=== PATIENT | female | born 1945 | race Caucasian/White ===

== ENCOUNTER 2017-04-23 10:07 | Emergency (ER) | payer BC, MEDICARE ==
[~2017-04-23] VITALS: Ht 167.6 cm; Wt 51.3 kg
[~2017-04-23 10:07] MED LIST: ANTI DEPRESSANT; BACTRIM DS TAB1 EACH PO; CELEXA10 MG PO; FLOMAX0.4 MG PO; HYDROCODONE-AP1 EAC6 PO; NAPROSYN250 MG PO; NORCO 5-325 TA1 EACH PO; PROVIGIL 100 M100 M1 PO
[2017-04-23 10:54] LABS: HEMATOCRIT 39.2 % (37.0-47.0); HEMOGLOBIN 13.1 gm/dL (12.0-15.0); MCH 29.9 pg (26.0-34.0); MCHC 33.3 g/dL (28.0-37.0); MCV 89.9 fL (80.0-100.0); MPV 7.7 fl. (7.2-11.1); RBC 4.36 mil/uL (4.20-5.00); WBC 6.3 thou/uL (4.0-11.0)
[2017-04-23 10:58] LABS: URINE BLOOD NEGATIVE (Negative); URINE CLARITY CLEAR; URINE COLOR DARK YELLOW; URINE GLUCOSE-RANDOM NEGATIVE (Negative); URINE KETONES 1+ (Negative); URINE LEUKOCYTES-REFLEX NEGATIVE (Negative); URINE NITRITE-REFLEX NEGATIVE (Negative); URINE PROTEIN TRACE (Negative); URINE SPECIFIC GRAVITY 1.025 (1.005-1.030)
[2017-04-23 11:00] LABS: ICTOTEST (BILI CONFIRMATORY) Negative (Negative); URINE BILIRUBIN 2+ (Negative)
[2017-04-23 11:09] LABS: CALCIUM 7.7 mg/dL (8.5-10.1); CREATININE 1.6 mg/dL (0.6-1.3); POTASSIUM 4.6 mmol/L (3.5-5.1)
[2017-04-23 11:14] LABS: ALBUMIN 2.1 g/dL (3.4-5.0); TOTAL BILIRUBIN 0.6 mg/dL (<0.1-1.0); TOTAL PROTEIN 5.2 g/dL (6.4-8.2)
[2017-04-23 11:52] VITALS: BP 146/62
== END 2017-04-23 11:53 | disposition home or self-care (01) ==
LOC: M.ERS 10:07
PROVIDERS: Emergency Medicine Emergency Medical Services
DX: R79.89 Other specified abnormal findings of blood chemistry (principal); G35 Multiple sclerosis; F17.200 Nicotine dependence, unspecified, uncomplicated; Z85.3 Personal history of malignant neoplasm of breast; Z90.5 Acquired absence of kidney

== ENCOUNTER 2017-04-29 17:17 | Emergency (ER) | payer BC, MEDICARE ==
[~2017-04-29] VITALS: Ht 167.6 cm; Wt 53.5 kg
[2017-04-29 18:28] LABS: ABSOLUTE MONOCYTES 0.3 thou/uL (0.0-1.2); ABSOLUTE NEUTROPHILS 3.5 thou/uL (1.6-8.1); BASOPHILS 0.3 %; EOSINOPHILS 0.5 %; HEMATOCRIT 37.1 % (37.0-47.0); HEMOGLOBIN 12.5 gm/dL (12.0-15.0); MCH 30.2 pg (26.0-34.0); MCHC 33.8 g/dL (28.0-37.0); MCV 89.5 fL (80.0-100.0); MONOCYTES 5.9 %; MPV 7.8 fl. (7.2-11.1); NUCLEATED RBCS 0 /100WBC; PLATELET COUNT* 285 thou/uL (150-400); POLYS 73.3 %; RBC 4.15 mil/uL (4.20-5.00); RDW-CV 16.3 % (10.5-14.5); WBC 4.8 thou/uL (4.0-11.0)
[2017-04-29 18:35] LABS: CREATININE 1.6 mg/dL (0.6-1.3); POTASSIUM 4.2 mmol/L (3.5-5.1)
[2017-04-29 18:40] LABS: TOTAL BILIRUBIN 0.6 mg/dL (<0.1-1.0); TOTAL PROTEIN 4.9 g/dL (6.4-8.2)
[2017-04-29 19:42] LABS: URINE BILIRUBIN NEGATIVE (Negative); URINE BLOOD NEGATIVE (Negative); URINE CLARITY CLEAR; URINE COLOR YELLOW; URINE GLUCOSE-RANDOM NEGATIVE (Negative); URINE KETONES NEGATIVE (Negative); URINE LEUKOCYTES-REFLEX TRACE (Negative); URINE PROTEIN NEGATIVE (Negative); URINE SPECIFIC GRAVITY <= 1.005 (1.005-1.030); URINE UROBILINOGEN 0.2 E.U./dl (0.2-1.0)
[2017-04-29 19:45] LABS: URINE NITRITE-REFLEX POSITIVE (Negative)
[2017-04-29] MEDS ORDERED: MACROBID 100 M100 M1 PO (20:03)
[2017-04-29 20:15] VITALS: BP 116/68
[2017-04-29 20:38] LABS: BACTERIA-REFLEX >30 Many /HPF (None Seen); CASTS None Seen /LPF (None Seen); CRYSTALS None Seen /LPF (None Seen); SQUAMOUS >10 Many /LPF (0-3); URINE RBC None Seen /HPF (0-2); URINE WBC-REFLEX 0-5 Rare /HPF (0-5)
== END 2017-04-29 20:38 | disposition home or self-care (01) ==
LOC: M.ERS 17:17
PROVIDERS: Nurse Practitioner Family
DX: N39.0 Urinary tract infection, site not specified (principal); G35 Multiple sclerosis; F17.200 Nicotine dependence, unspecified, uncomplicated; Z85.3 Personal history of malignant neoplasm of breast; Z98.890 Other specified postprocedural states

== ENCOUNTER → 2017-05-16 | Outpatient (CLI) | payer BC, MEDICARE ==
[~2017-05-16] MED LIST changes: +FLEXERIL PO; +KLOR-CON 1010 MEQ PO; +LASIX 20 MG TAB20 MG PO; +MACROBID 100 M100 M1 PO; +PAXIL10 MG PO; +PERCOCET 10-321 EACH PO; +PROLOPRIM100 MG PO; +REMERON15 MG PO; +ZOFRAN ODT4 MG PO
[2017-05-16 13:26] LABS: CALCIUM 7.8 mg/dL (8.5-10.1); CREATININE 1.4 mg/dL (0.6-1.3); POTASSIUM 4.2 mmol/L (3.5-5.1)
== END ==
LOC: M.ULTRA 12:30 → M.LAB 12:43
PROVIDERS: Family Medicine
DX: M79.604 Pain in right leg (principal); M79.605 Pain in left leg; R60.0 Localized edema; M79.89 Other specified soft tissue disorders

== ENCOUNTER 2017-05-23 18:40 | Inpatient (IN) | payer BC, MEDICARE ==
[~2017-05-23] VITALS: Ht 167.6 cm; Wt 61.2 kg
--- NOTE | ~2017-05-23 | PROC ---
[address] [address] PROCEDURE REPORT Name: FRIEDA JAEGER Room: [address] IN .R.#: [id number] Admission: 05/23/17 Attend Phys: Papito Beal Discharge: 05/26/17 Date of : 45 Report #: [id number] THIS REPORT FOR: //name// For GI report, please see Provation report in Perceptive 7 content. By: [facility]9Medical Records Staff [facility] /NAGA
[~2017-05-23 18:40] MED LIST changes: -FLEXERIL PO; -KLOR-CON 1010 MEQ PO; -LASIX 20 MG TAB20 MG PO; -PAXIL10 MG PO; -PERCOCET 10-321 EACH PO; -PROLOPRIM100 MG PO; -REMERON15 MG PO; -ZOFRAN ODT4 MG PO
[2017-05-23 18:46] VITALS: BP 123/67
[2017-05-23] MEDS ORDERED: LASIX 20 MG TAB20 MG PO (19:01)
[2017-05-23] MEDS ORDERED: FLEXERIL PO (19:01)
[2017-05-23] MEDS ORDERED: KLOR-CON 1010 MEQ PO (19:01)
[2017-05-23 19:26] LABS: ABSOLUTE LYMPHOCYTES 1.5 thou/uL (0.8-5.3); ABSOLUTE MONOCYTES 0.4 thou/uL (0.0-1.2); ABSOLUTE NEUTROPHILS 5.4 thou/uL (1.6-8.1); BASOPHILS 0.2 %; EOSINOPHILS 0.4 %; HEMOGLOBIN 11.7 gm/dL (12.0-15.0); LYMPHOCYTES 21.1 %; MCH 30.8 pg (26.0-34.0); MCHC 33.3 g/dL (28.0-37.0); MCV 92.4 fL (80.0-100.0); MONOCYTES 5.1 %; MPV 8.4 fl. (7.2-11.1); NUCLEATED RBCS 0 /100WBC; PLATELET COUNT* 320 thou/uL (150-400); POLYS 73.2 %; RBC 3.79 mil/uL (4.20-5.00); RDW-CV 17.4 % (10.5-14.5); WBC 7.3 thou/uL (4.0-11.0)
[2017-05-23 19:29] LABS: ANION GAP 5 mmol/L (7-16); BUN 29 mg/dL (7-18); CALCIUM 7.6 mg/dL (8.5-10.1); CHLORIDE 105 mmol/L (98-107); CO2 30 mmol/L (21-32); CREATININE 1.3 mg/dL (0.6-1.3); GLUCOSE 79 mg/dL (70-99); POTASSIUM 4.5 mmol/L (3.5-5.1); SODIUM 140 mmol/L (136-145)
[2017-05-23 19:37] LABS: APTT 25.3 Seconds (25.0-31.3); PROTIME 9.7 Seconds (9.20-11.50)
[2017-05-23 19:40] LABS: ALBUMIN 1.6 g/dL (3.4-5.0); ALKALINE PHOSPHATASE 219 U/L (46-116); NT-PRO BRAIN NAT PEPTIDE 1772 pg/mL (<300); SGOT 18 U/L (15-37); SGPT 38 U/L (30-65); TOTAL BILIRUBIN 0.4 mg/dL (<0.1-1.0); TOTAL PROTEIN 4.9 g/dL (6.4-8.2); TROPONIN-I LEVEL <0.06 ng/mL (<0.06)
[2017-05-23 20:50] VITALS: BP 116/60
[2017-05-23 21:08] VITALS: BP 102/65
[2017-05-24 04:23] VITALS: BP 92/58
--- NOTE | 2017-05-24 05:00 | NUR ---
END SHIFT: PT RESTED WELL. WEAKNESS NOTED UPON STANDING BUT IS ABLE TO WALK TO THE BATHROOM WITH ASSIST. PT STATES SHE HAS BEEN GETTING DIZZY OFTEN. IRREGULAR HR NOTED- SR WITH FREQ PAC'S. LET FOOT EDEMA THAT IS NORMAL PER PATIENT NOTED ON LEFT FOOT. IVF INFUSING WITHOUT DIFFICULTY. ABLE TO SWALLOW PILLS AND SWALLOW THIN LIQUIDS WITH NO PROBLEMS. SAFETY PRECAUTIONS IN PLACE. CALL LIGHT IN REACH. WILL CONT TO MONITOR.
[2017-05-24 08:15] VITALS: BP 98/60
--- NOTE | 2017-05-24 08:15 | NUR ---
ASSUMED PT. CARE AND RECEIVED REPORT AT 0730. PT A/OX4, VSS, MONITOR ON TRACING MIKI. PT. DENIES CURRENT PAIN/SOB/NAUSEA. ON RA @ 97%. FULL ASSESSMENT COMPLETED, REFER TO CHARTING. PT STATES SHE JUST WANTS TO GO BACK TO NORMAL AND EATIN AGAIN. CALL LIGHT IN REACH, WILL CONTINUE WITH PLAN OF CARE.
[2017-05-24 10:35] LABS: URINE BILIRUBIN NEGATIVE (Negative); URINE BLOOD NEGATIVE (Negative); URINE CLARITY CLOUDY; URINE COLOR YELLOW; URINE GLUCOSE-RANDOM NEGATIVE (Negative); URINE KETONES NEGATIVE (Negative); URINE LEUKOCYTES-REFLEX NEGATIVE (Negative); URINE NITRITE-REFLEX NEGATIVE (Negative); URINE PROTEIN NEGATIVE (Negative); URINE SPECIFIC GRAVITY 1.015 (1.005-1.030); URINE UROBILINOGEN 0.2 E.U./dl (0.2-1.0)
[2017-05-24 10:47] LABS: BACTERIA-REFLEX >30 Many /HPF (None Seen); CASTS None Seen /LPF (None Seen); CRYSTALS None Seen /LPF (None Seen); SQUAMOUS 0-3 Few /LPF (0-3); URINE RBC 0-2 Rare /HPF (0-2); URINE WBC-REFLEX 0-5 Rare /HPF (0-5)
--- NOTE | 2017-05-24 12:11 | EKG ---
[place] [address] ELECTROCARDIOGRAM REPORT Name: FRIEDA JAEGER Room: [address] ADM IN ..#: [id number] Admission: 05/23/17 Attend Phys: Papito Beal Discharge: Date of : 45 Report #: [id number] THIS REPORT FOR: //name// [facility] ED Test Date: 2017-05-23 Test Time: 18:50:19 Pat Name: FRIEDA JAEGER Department: Room: [facility] Gender: F Home Care Physical Therapist: GAMBLING SUPERVISOR : 1945 Requested By: Gurjit Keen Order Number: [id number] MD: Chris Jenkins Measurements Intervals [place] Rate: 83 P: 70 MS: 152 QRS: 65 QRSD: 92 T: 52 QT: 386 QTc: 454 Interpretive Statements Sinus rhythm Supraventricular bigeminy Low voltage, extremity leads Compared to ECG 12/06/2016 14:49:31 Atrial premature complex(es) now present Electronically Signed On 05-24-2017 12:11:31 TRAFFIC ASSISTANT by Chris Jenkins [email or web address] <ELECTRONICALLY SIGNED> By: Chris Jenkins MD, FAC 05/24/17 1211 1850 1850 Chris Jenkins MD, [facility] /EPI
--- NOTE | 2017-05-24 12:12 | EKG ---
[place] [address] ELECTROCARDIOGRAM REPORT Name: HEIDEANNETTEFRIEDA Miriam Room: [address] ADM IN [facility]#: [id number] Admission: 05/23/17 Attend Phys: Papito Beal Discharge: Date of : 45 Report #: [id number] THIS REPORT FOR: //name// [facility] ED Test Date: 2017-05-23 Test Time: 19:21:51 Pat Name: FRIEDA JAEGER Department: Room: [facility] Gender: F Secret Code Expert: UNKNOWN : 1945 Requested By: Don Peralta Order Number: [id number] MD: Chris Jenkins Measurements Intervals [place] Rate: 81 P: 70 ND: 146 QRS: 63 QRSD: 93 T: 51 QT: 377 QTc: 438 Interpretive Statements Sinus rhythm Atrial premature complexes Low voltage, extremity leads Compared to ECG 12/06/2016 14:49:31 Atrial premature complex(es) now present Electronically Signed On 05-24-2017 12:11:56 POWERHOUSE LABORER by Chris Jenkins [email or web address] <ELECTRONICALLY SIGNED> By: Chris Jenkins MD, FAC 05/24/17 121 20 20 Chris Jenkins MD, [facility] /EPI
[2017-05-24 13:22] VITALS: BP 101/64
[2017-05-24 17:15] VITALS: BP 103/62
--- NOTE | 2017-05-24 19:40 | NUR ---
NO CHANGE IN PT. STATUS THROUGH OUT SHIFT. PT. WAS ABLE TO TOLERATED CREAM OF WHEAT 1/2 BOWL AT BREAKFAST AND CLEAR LIQUID DINNER, WITH 2 BOOSTS TODAY. EGD PLANNED FOR TOMORROW, PT. AWARE AND AGREES. CT ABD. COMPLETED AND RESULTS CALLED TO DR. BARBA PER ORDERS. HOURLY ROUNDING COMPLETED THROUGH OUT THE DAY FOR PT. SAFETY.
[2017-05-24 20:00] VITALS: BP 109/70
[2017-05-25 00:10] VITALS: BP 105/65
[2017-05-25 04:08] VITALS: BP 107/63
--- NOTE | 2017-05-25 04:18 | NUR ---
ASSUMED CARE OF PT AT 1930, NURSING ASSESSMENT COMPLETED AT START OF SHIFT, PT CONTINUES ON TELE MONITOR TRACING SINUS ARRHYTHMIA. PT VOICED NO CONCERNS, CALL LIGHT REMAINS WITHIN REACH. IVF INFUSING;NO FALLS THIS SHIFT
[2017-05-25 05:48] LABS: ABSOLUTE EOSINOPHILS 0.1 thou/uL (0.0-0.7); ABSOLUTE LYMPHOCYTES 1.2 thou/uL (0.8-5.3); ABSOLUTE MONOCYTES 0.3 thou/uL (0.0-1.2); ABSOLUTE NEUTROPHILS 4.1 thou/uL (1.6-8.1); BASOPHILS 0.2 %; HEMATOCRIT 31.7 % (37.0-47.0); HEMOGLOBIN 10.7 gm/dL (12.0-15.0); LYMPHOCYTES 20.7 %; MCH 31.4 pg (26.0-34.0); MCHC 33.8 g/dL (28.0-37.0); MCV 92.9 fL (80.0-100.0); MONOCYTES 5.1 %; MPV 7.8 fl. (7.2-11.1); NUCLEATED RBCS 0 /100WBC; PLATELET COUNT* 290 thou/uL (150-400); RBC 3.42 mil/uL (4.20-5.00); RDW-CV 17.2 % (10.5-14.5); WBC 5.6 thou/uL (4.0-11.0)
[2017-05-25 06:33] LABS: PROTIME 9.9 Seconds (9.20-11.50)
[2017-05-25 06:37] LABS: ALBUMIN 1.3 g/dL (3.4-5.0); CALCIUM 6.9 mg/dL (8.5-10.1); MAGNESIUM 1.7 mg/dL (1.8-2.4); POTASSIUM 3.3 mmol/L (3.5-5.1); TOTAL BILIRUBIN 0.3 mg/dL (<0.1-1.0); TOTAL PROTEIN 4.1 g/dL (6.4-8.2)
[2017-05-25 08:32] LABS: ESR (SEDRATE) 15 mm/hr (0-30)
[2017-05-25 09:30] VITALS: BP 109/68
--- NOTE | 2017-05-25 09:47 | NUR ---
ASSUMED PT. CARE AND RECEIVED REPORT AT 0730. PT A/OX4, VSS, MONITOR ON TRACING MIKI. PT. DENIES CURRENT PAIN/SOB. ON RA @ 98%. FULL ASSESSMENT COMPLETED, REFER TO CHARTING. PT. NPO FOR EGD, PT. AWARE AND STATES UNDERSTANDING. WILL CONTINUE WITH PLAN OF CARE.
[2017-05-25 14:00] VITALS: BP 112/62
[2017-05-25 15:09] LABS: eGFR IF AFRICAN AMERICAN 72 (>59)
[2017-05-25 16:37] VITALS: BP 101/61
--- NOTE | 2017-05-25 19:32 | NUR ---
PT. STABLE THROUGH OUT THE DAY. COMPLETED EGD, TOLERATED WELL. PT. APPETITE BETTER UPON RETURN. ATE PORTIONS OF LUNCH AND DINNER AND ICE CREAM. PT. STATES SHE IS "HUNGRY" FOR THE FIRST TIME IN A LONG TIME. AWARE OF PLAN OF CARE FOR GET IN A.M. PT. STATES DESIRE TO DC TOMORROW AND COMPLETE COLONSCOPY OUT PATIENT IF ABLE. HOURLY ROUNDING COMPLETED THROUGH OUT THE DAY FOR PT. SAFETY.
[2017-05-25 20:00] VITALS: BP 105/66
[2017-05-26] VITALS: BP 116/67
[2017-05-26 02:05] LABS: PARATHYROID HORMONE 87 pg/mL (15-65)
[2017-05-26 04:00] VITALS: BP 118/69
--- NOTE | 2017-05-26 05:14 | NUR ---
ASSUMED CARE OF PT AT 1930, NURSING ASSESSMENT COMPLETED AT START OF SHIFT, PT VOICED NO CONCERNS, PT NPO AFTER MIDNIGHT FOR TEST THIS AM, PT EDUCATED ON IMPORTANCE, PT VERBALIZED UNDERSTANDING. CONTINUES ON TELE MONITOR TRACING SINUS ARRHYTHMIA. HOURLY ROUNDING COMPLETED, CALL LIGHT WITHIN REACH.
[2017-05-26 05:24] LABS: HEMATOCRIT 31.9 % (37.0-47.0); HEMOGLOBIN 10.9 gm/dL (12.0-15.0); MCH 31.6 pg (26.0-34.0); MCV 92.9 fL (80.0-100.0); MPV 8.1 fl. (7.2-11.1); RBC 3.44 mil/uL (4.20-5.00); RDW-CV 18.1 % (10.5-14.5); WBC 5.1 thou/uL (4.0-11.0)
[2017-05-26 05:39] LABS: ALBUMIN 1.3 g/dL (3.4-5.0); CALCIUM 7.3 mg/dL (8.5-10.1); CREATININE 1.1 mg/dL (0.6-1.3); TOTAL BILIRUBIN 0.4 mg/dL (<0.1-1.0); TOTAL PROTEIN 4.1 g/dL (6.4-8.2)
[2017-05-26 05:44] LABS: POTASSIUM 4.5 mmol/L (3.5-5.1)
--- NOTE | 2017-05-26 11:13 | NUR ---
Nutrition: Pt assessed for Consult stating "onlyable to take liquids d/t swallowing issues." Pt has now had an EGD (unremarkable) and her appetite is better now. She is currently NPO for colonoscopy today. She had 2 day bowel prep d/t not able to drink a lot at once d/t early satiety. RX: noted. Labs: BG 61, alb 1.3, prealb 14.4. Wt is highly varible. Please reweigh for accuracy. Will await results of scope. Pt does need nutrition - severely depleted visceral protein stores. Please advance diet as soon as pt is clinically able. RD will order Boost Breeze for added protein. Mild risk at this time.
[2017-05-26 14:09] LABS: CA 27.29-BREAST CARCINOMA AG 38.8 U/mL (0.0-38.6)
--- NOTE | 2017-05-26 14:15 | 2DMMODE ---
[place] [address] 2 D/M-MODE ECHOCARDIOGRAM Name: FRIEDA JAEGER Room: [address] ADM IN .R.#: [id number] Admission: 05/23/17 Attend Phys: Artemio Yates Discharge: Date of : 45 Date of Service: 05/26/17 1415 Report #: [id number] THIS REPORT FOR: //name// APPROVED REPORT Study performed: 05/26/2017 10:28:11 EXAM: Comprehensive 2D, Doppler, and color-flow Echocardiogram Patient Location: Bedside BSA: 1.52 HR: 71 bpm BP: 118/69 mmHg Other Information Study Quality: Fair Indications Arrhythmia 2D Dimensions LVEF(%): 51.89 (>50%) IVSd: 11.93 (7-11mm) LVOT Diam: 20.72 (18-24mm) LVDd: 32.19 mm PWd: 9.19 (7-11mm) Ascending Ao: 33.18 (22-36mm) LVDs: 23.92 (25-40mm) Aortic Root: 25.35 mm Tilley's LVEF: 51.89 % Volumes Left Atrial Volume (Systole) LA ESV Index: 27.60 mL/m2 Aortic Valve AoV Peak Yon.: 1.04 m/s AO Peak Gr.: 4.35 mmHg LVOT Max P.51 mmHg AO Mean Gr.: 2.62 mmHg LVOT Mean P.32 mmHg LVOT Max V: 1.17 m/s AO V2 VTI: 20.55 cm LVOT Mean V: 0.69 m/s ESTHER (VTI): 3.64 cm2 LVOT V1 VTI: 22.16 cm AI Cotton: 1.35 m/s2 AI PHT: 591.05 ms Mitral Valve E/A Ratio: 0.92 [place] [address] 2 D/M-MODE ECHOCARDIOGRAM Name: FRIEDA JAEGER Room: [address] IN .R.#: [id number] Admission: 05/23/17 Attend Phys: Artemio Yates Discharge: Date of : 45 Date of Service: 05/26/17 1415 Report #: [id number] MV Decel. Time: 238.27 ms MV E Max Yon.: 0.64 m/s MV PHT: 69.10 ms MVA (PHT): 3.18 cm2 TDI E/Lateral E': 5.82 E/Medial E': 8.00 Medial E' Yon.: 0.08 m/s Lateral E' Yon.: 0.11 m/s Pulmonary Valve PV Peak Yon.: 0.78 m/s PV Peak Gr.: 2.44 mmHg Tricuspid Valve RAP Estimate: 5.00 mmHg TR Peak Gr.: 32.16 mmHg RVSP: 37.16 mmHg PA Pressure: 37.16 mmHg Left Ventricle The left ventricle is normal size. There is normal LV segmental wall motion. Left ventricular systolic function is normal. The left ventricular ejection fraction is within the normal range. LVEF is 55-60%. Grade I - abnormal relaxation pattern. Right Ventricle The right ventricle is normal size. The right ventricular systolic function is normal. Atria The left atrium size is normal. The right atrium size is normal. Aortic Valve Aortic valve leaflets are mildly thickened. Mild aortic regurgitation. There is no aortic valvular stenosis. Mitral Valve The mitral valve is normal in structure. There is no mitral valve regurgitation noted. No evidence of mitral valve stenosis. Tricuspid Valve The tricuspid valve is normal in structure. Mild to moderate tricuspid regurgitation. estimated pa pressure 40 mm Hg Pulmonic Valve Pulmonic valve is not well visualized. There [place] [address] 2 D/M-MODE ECHOCARDIOGRAM Name: HEIDEFREIDA T Room: [address] IN ..#: [id number] Admission: 05/23/17 Attend Phys: Artemio Yates Discharge: Date of : 45 Date of Service: 05/26/17 1415 Report #: [id number] regurgitation. Great Vessels The aortic root is normal in size. IVC is not well visualized. Pericardium There is no pericardial effusion. <Conclusion> LVEF is 55-60%. Mild aortic regurgitation. <ELECTRONICALLY SIGNED> By: Philip Guevara MD, [facility] 05/26/17 1415 1415 1415 Philip Guevara MD, FACC /INF
[2017-05-26 16:00] VITALS: BP 121/64
[2017-05-26] MEDS ORDERED: REMERON15 MG PO (16:58)
[2017-05-26] MEDS ORDERED: PROLOPRIM100 MG PO (17:04)
[2017-05-26] MEDS ORDERED: PAXIL10 MG PO (17:05)
[2017-05-26 17:54] VITALS: BP 121/64
--- NOTE | 2017-05-27 11:06 | S ---
[address] [address] SURGICAL PATH RPT PROCEDURE Name: BETTY JAEGER Room: [address] IN M.R.#: [id number] Admission: 05/23/17 Date of : 45 Discharge: 05/26/17 Report #: [id number] Path Case #: [id number] PATHOLOGY REPORT COLLECTION DATE: 05/25/2017 RECEIVED DATE: 05/26/2017 SUBMITTING PHYS: Dr. Gabriel Paulino OTHER PHYS: Dr. Artemio Rosas SPECIMEN(S) RECEIVED: A.Small bowel biopsy * * * * * * * * * * * * FINAL DIAGNOSIS: Small bowel biopsy: - Normal small intestinal mucosa. (SANIA:mgr; 05/27/2017) PATHOLOGIST: Ulysses Nava M.D. REPORT ELECTRONICALLY SIGNED BY: Ulysses Nava M.D. DATE/TIME: 05/27/2017 11:05 * * * * * * * * * * * * GROSS PATHOLOGY: The specimen is received in formalin, labeled "Betty Jaeger, small bowel biopsy," and consists of 3 ann mucosal biopsies measuring between 0.4 x 0.3 x 0.2 cm and 0.3 x 0.1 x 0.1 cm. They are entirely submitted in cassette A1. (SDY; 05/26/2017) CLINICAL HISTORY: None provided INITIAL CPT CODE(S): A; 78196 Professional services performed by [facility] at [place] [address] [place] [address] Technical services performed by [facility] at [address] [place] [address], [address], [place] [address] [facility] [address] [place] [address] SURGICAL PATH RPT PROCEDURE Name: BETTY JAEGER Room: [address] IN M.R.#: [id number] Admission: 05/23/17 Date of : 45 Discharge: 05/26/17 Report #: [id number] Path Case #: [id number] [address] PHONE: [phone] DIRECTOR: Otis Card M.D. * * * END OF REPORT * * *
--- NOTE | 2017-06-16 17:57 | CON ---
[address] [address] CONSULTATION Name: HEIDEFRIEDA T Room: [address] IN M.R.#: [id number] Admission: 05/23/17 Attend Phys: Papito Beal Discharge: 05/26/17 Date of : 45 Report #: [id number] THIS REPORT FOR: //name// CC: Tanisha Yates DATE OF SERVICE: 05/24/2017 REFERRING PHYSICIANS: Dr. Tanisha Rosas and Dr. Dennis Ahn. REASON FOR CONSULTATION: Anorexia with weight loss. IMPRESSION: 1. Anorexia with aversion to solid foods of unclear etiology. 2. Profound weight loss of 35 pounds within the last 3 months. 3. Severe hypoproteinemia and hypoalbuminemia secondary to the same. 4. Anemia, which is likely multifactorial. 5. Elevated alkaline phosphatase of unclear etiology. 6. Personal history of renal cell carcinoma for which the patient recently underwent right nephrectomy. 7. Remote history of breast cancer. RECOMMENDATIONS: 1. Due to the patient's profound weight loss, anorexia, etc. we will proceed with CT scan of the abdomen and pelvis, oral and IV contrast plus through the pancreas. In reviewing her CT scan from 10/2016, I think that her distal common bile duct and pancreatic duct are dilated and I have no clear reason for the same. 2. We will proceed with upper endoscopy tomorrow at noon. 3. We will check a GGTP to determine the source of her elevated alkaline phosphatase. 4. We will hold off on proceeding with a colonoscopy at this time as I do not think she will be able to tolerate a bowel preparation. 5. We will likely get her scheduled also for a 4-hour gastric emptying scan, a video swallow study depending on the results of tomorrow's endoscopy. I have discussed these recommendations with the patient as well and she is agreeable to the same. HISTORY OF PRESENT ILLNESS: The patient is a very pleasant 71-year-old white female who seems to not be doing well for the last few months. She underwent surgery for renal cell carcinoma with right nephrectomy and since that time she has not had much of an appetite. She lost close to 30 pounds in the last 3 months because she has not been eating. She also had some problem with constipation. She states she had difficulty with swallowing, but she is not specific about what that means. She denies any actual problems with food sticking or problem with coughing or choking while she eats[place] [address] CONSULTATION Name: FRIEDA JAEGER Room: [address]#: [id number] Admission: 05/23/17 Attend Phys: Papito Beal Discharge: 05/26/17 Date of : 45 Report #: [id number] to eat anything. She has mostly been on liquids. She was scheduled for upper and lower endoscopy with us in the near future, but because of issues with lightheadedness and dizziness she was admitted to the hospital for further evaluation and treatment. ALLERGIES: None. MEDICATIONS: Furosemide, potassium for peripheral edema, cyclobenzaprine and Celexa. PAST MEDICAL HISTORY: Remarkable for previous right breast cancer with lumpectomy in the remote past, right nephrectomy. She has a history of MS by her report as well. SOCIAL HISTORY: The patient smokes half a pack per day. She does not drink any alcohol. FAMILY HISTORY: Negative. PHYSICAL EXAMINATION: GENERAL: Pleasant, but ill-appearing 71-year-old white female who is awake and alert. CARDIOPULMONARY: Revealed a regular rate and rhythm. LUNGS: Clear. ABDOMEN: Soft, not particularly tender. No rebound or guarding noted. LABORATORY DATA: From admission revealed a white count of 7.3, hemoglobin 11.7, platelet count 320,000, MCV is 92.4, and RDW of 17.4. Sodium 140, potassium 4.5, chloride 105, bicarbonate is 30, BUN is 29, creatinine 1.3. Her total bilirubin is 0.4, alkaline phosphatase 219, AST is 18, ALT 38, albumin is only 1.6 with a total protein of 4.9. T4 is 0.79 with a TSH of 2.766. Protime is 9.7 and INR 1.0. DISCUSSION: At the present time, the patient has had profound weight loss. We will proceed with these studies as above and make further recommendations thereafter. <ELECTRONICALLY SIGNED> By: Gabriel Paulino DO 06/16/17 1757 164 180Gabriel Paulino DO /nt
== END 2017-05-26 19:15 | disposition home or self-care (01) | DRG 391 ==
LOC: M.ERS 18:40 → M.2W 19:41 → M.TBA-ER 19:41 → M.2W 20:48
PROVIDERS: Family Medicine; Internal Medicine Gastroenterology; ADMIT Internal Medicine
PROC: 0DB88ZX Excision of Small Intestine, Via Natural or Artificial Opening Endoscopic, Diagnostic (ICD-10-PCS; principal; 2017-05-23)
DX: A08.4 Viral intestinal infection, unspecified (principal); E43 Unspecified severe protein-calorie malnutrition; I50.32 Chronic diastolic (congestive) heart failure; R62.7 Adult failure to thrive; I95.1 Orthostatic hypotension; G35 Multiple sclerosis; D64.9 Anemia, unspecified; E77.8 Other disorders of glycoprotein metabolism; I73.9 Peripheral vascular disease, unspecified; J43.9 Emphysema, unspecified; D71 Functional disorders of polymorphonuclear neutrophils; K52.9 Noninfective gastroenteritis and colitis, unspecified; Z68.21 Body mass index [BMI] 21.0-21.9, adult; Z90.5 Acquired absence of kidney; Z85.3 Personal history of malignant neoplasm of breast; Z79.899 Other long term (current) drug therapy; Z85.528 Personal history of other malignant neoplasm of kidney

== ENCOUNTER → 2017-06-17 | Outpatient (CLI) | payer BC, MEDICARE ==
[~2017-06-17] MED LIST changes: +FLEXERIL PO; +KLOR-CON 1010 MEQ PO; +LASIX 20 MG TAB20 MG PO; +PAXIL10 MG PO; +PERCOCET 10-321 EACH PO; +PROLOPRIM100 MG PO; +REMERON15 MG PO; +ZOFRAN ODT4 MG PO
[2017-06-17 13:52] LABS: ABSOLUTE EOSINOPHILS 0.1 thou/uL (0.0-0.7); ABSOLUTE LYMPHOCYTES 1.2 thou/uL (0.8-5.3); ABSOLUTE MONOCYTES 0.4 thou/uL (0.0-1.2); ABSOLUTE NEUTROPHILS 5.9 thou/uL (1.6-8.1); BASOPHILS 0.2 %; EOSINOPHILS 0.9 %; HEMOGLOBIN 11.3 gm/dL (12.0-15.0); LYMPHOCYTES 15.8 %; MCHC 33.3 g/dL (28.0-37.0); MCV 99.1 fL (80.0-100.0); MONOCYTES 5.1 %; MPV 8.4 fl. (7.2-11.1); NUCLEATED RBCS 0 /100WBC; PLATELET COUNT* 318 thou/uL (150-400); RBC 3.43 mil/uL (4.20-5.00); RDW-CV 16.1 % (10.5-14.5); WBC 7.6 thou/uL (4.0-11.0)
[2017-06-17 14:05] LABS: CALCIUM 7.9 mg/dL (8.5-10.1); CREATININE 1.3 mg/dL (0.6-1.3); POTASSIUM 4.2 mmol/L (3.5-5.1); TOTAL BILIRUBIN 0.3 mg/dL (<0.1-1.0); TOTAL PROTEIN 5.5 g/dL (6.4-8.2)
[2017-06-17 15:31] LABS: ESR (SEDRATE) 55 mm/hr (0-30)
== END ==
LOC: M.LAB 13:26
PROVIDERS: Internal Medicine Gastroenterology
DX: R63.0 Anorexia (principal); R63.4 Abnormal weight loss

== ENCOUNTER → 2017-11-07 | Outpatient (CLI) | payer BC, MEDICARE ==
[2017-11-07 13:40] LABS: ALBUMIN 2.6 g/dL (3.4-5.0); CALCIUM 8.5 mg/dL (8.5-10.1); CREATININE 1.2 mg/dL (0.6-1.3); POTASSIUM 4.8 mmol/L (3.5-5.1); TOTAL BILIRUBIN 0.2 mg/dL (<0.1-1.0); TOTAL PROTEIN 6.8 g/dL (6.4-8.2)
== END ==
LOC: M.RAD 13:11
PROVIDERS: Urology
DX: I70.0 Atherosclerosis of aorta (principal); N39.0 Urinary tract infection, site not specified; Z85.528 Personal history of other malignant neoplasm of kidney; Z85.3 Personal history of malignant neoplasm of breast

== ENCOUNTER → 2017-12-15 | Outpatient (CLI) | payer BC, MEDICARE ==
[2017-12-15 15:59] LABS: ABSOLUTE EOSINOPHILS 0.2 thou/uL (0.0-0.7); ABSOLUTE LYMPHOCYTES 1.2 thou/uL (0.8-5.3); ABSOLUTE MONOCYTES 0.4 thou/uL (0.0-1.2); ABSOLUTE NEUTROPHILS 6.9 thou/uL (1.6-8.1); BASOPHILS 0.5 %; HEMATOCRIT 33.8 % (37.0-47.0); HEMOGLOBIN 10.9 gm/dL (12.0-15.0); LYMPHOCYTES 13.8 %; MCH 27.8 pg (26.0-34.0); MCHC 32.2 g/dL (28.0-37.0); MCV 86.3 fL (80.0-100.0); MONOCYTES 4.6 %; MPV 7.3 fl. (7.2-11.1); NUCLEATED RBCS 0 /100WBC; PLATELET COUNT* 426 thou/uL (150-400); POLYS 79.1 %; RBC 3.92 mil/uL (4.20-5.00); RDW-CV 17.6 % (10.5-14.5); WBC 8.7 thou/uL (4.0-11.0)
[2017-12-15 16:06] LABS: CALCIUM 8.6 mg/dL (8.5-10.1); CREATININE 1.3 mg/dL (0.6-1.3); POTASSIUM 3.9 mmol/L (3.5-5.1)
[2017-12-15 16:11] LABS: ALBUMIN 2.5 g/dL (3.4-5.0); TOTAL BILIRUBIN 0.3 mg/dL (<0.1-1.0); TOTAL PROTEIN 6.9 g/dL (6.4-8.2)
== END ==
LOC: M.LAB 10:00 → M.CT 11:00
PROVIDERS: Family Medicine
DX: G43.909 Migraine, unspecified, not intractable, without status migrainosus (principal); Z79.899 Other long term (current) drug therapy; Z85.3 Personal history of malignant neoplasm of breast

== ENCOUNTER 2017-12-24 16:46 | Emergency (ER) | payer BC, MEDICARE ==
[~2017-12-24] VITALS: Ht 167.6 cm; Wt 49.0 kg
[~2017-12-24 16:46] MED LIST changes: -PERCOCET 10-321 EACH PO; -ZOFRAN ODT4 MG PO
[2017-12-24 17:40] LABS: ABSOLUTE EOSINOPHILS 0.2 thou/uL (0.0-0.7); ABSOLUTE MONOCYTES 0.3 thou/uL (0.0-1.2); ABSOLUTE NEUTROPHILS 7.8 thou/uL (1.6-8.1); BASOPHILS 0.5 %; EOSINOPHILS 2.5 %; HEMATOCRIT 36.8 % (37.0-47.0); HEMOGLOBIN 11.7 gm/dL (12.0-15.0); LYMPHOCYTES 10.3 %; MCH 27.6 pg (26.0-34.0); MCHC 31.8 g/dL (28.0-37.0); MCV 86.9 fL (80.0-100.0); MPV 7.5 fl. (7.2-11.1); NUCLEATED RBCS 0 /100WBC; PLATELET COUNT* 546 thou/uL (150-400); POLYS 83.7 %; RBC 4.24 mil/uL (4.20-5.00); RDW-CV 18.4 % (10.5-14.5); WBC 9.3 thou/uL (4.0-11.0)
[2017-12-24 17:47] LABS: CALCIUM 8.2 mg/dL (8.5-10.1); CREATININE 1.6 mg/dL (0.6-1.3)
[2017-12-24 17:52] LABS: ALBUMIN 2.3 g/dL (3.4-5.0); TOTAL BILIRUBIN 0.3 mg/dL (<0.1-1.0); TOTAL PROTEIN 6.7 g/dL (6.4-8.2)
[2017-12-24 20:47] LABS: URINE BILIRUBIN NEGATIVE (Negative); URINE BLOOD NEGATIVE (Negative); URINE CLARITY CLEAR; URINE COLOR YELLOW; URINE GLUCOSE-RANDOM NEGATIVE (Negative); URINE KETONES NEGATIVE (Negative); URINE LEUKOCYTES-REFLEX NEGATIVE (Negative); URINE NITRITE-REFLEX NEGATIVE (Negative); URINE PROTEIN NEGATIVE (Negative); URINE SPECIFIC GRAVITY >= 1.030 (1.005-1.030); URINE UROBILINOGEN 0.2 E.U./dl (0.2-1.0)
[2017-12-24] MEDS ORDERED: ZOFRAN ODT4 MG PO (20:58)
[2017-12-24] MEDS ORDERED: PERCOCET 10-321 EACH PO (20:58)
[2017-12-24 21:27] VITALS: BP 124/67
--- NOTE | 2017-12-25 16:23 | EKG ---
[place] [address] ELECTROCARDIOGRAM REPORT Name: HEIDEFRIEDA Miriam Room: [facility]#: [id number] Admission: 12/24/17 Attend Phys: Discharge: 12/24/17 Date of : 45 Report #: [id number] THIS REPORT FOR: //name// [facility] ED Test Date: 2017-12-24 Test Time: 16:56:51 Pat Name: FRIEDA JAEGER Department: Room: Gender: F Lead Enterprise Architect: MARK : 1945 Requested By: Carie Dasilva Order Number: [id number] Kirsty MD: Yoav Ortega Measurements Intervals [place] Rate: 85 P: 74 MO: 133 QRS: 62 QRSD: 85 T: 49 QT: 339 QTc: 403 Interpretive Statements Sinus rhythm Probable left atrial enlargement Low voltage, extremity leads Compared to ECG 05/23/2017 19:21:51 Atrial premature complex(es) no longer present Electronically Signed On 12-25-2017 16:23:04 CDT by Yoav Ortega [email or web address] <ELECTRONICALLY SIGNED> By: Yoav Ortega MD, [facility] 12/25/17 1623 1656 1656 Yoav Ortega MD, [facility] /EPI
== END 2017-12-24 21:29 | disposition home or self-care (01) ==
LOC: M.ERS 16:46
PROVIDERS: Personal Emergency Response Attendant
DX: R51 Headache (principal); F17.210 Nicotine dependence, cigarettes, uncomplicated; Z85.3 Personal history of malignant neoplasm of breast; Z98.890 Other specified postprocedural states